=== PATIENT | male | born 1985 | race Caucasian/White ===

== ENCOUNTER 2021-06-14 12:32 | Inpatient (IN) ==
[2021-06-14 13:27] LABS: Appearance Urine Clear (Clear); Bacteria Urine Automated Negative (Negative); Bilirubin Urine Negative (Negative); Blood Urine Negative (Negative); Color Urine Dark Yellow; Glucose Urine UA Negative (Negative); Ketones Urine Trace (Negative); Leukocyte Esterase Urine Negative (Negative); Nitrite Urine Negative (Negative); Protein Urine Trace (Negative); RBC Urine Automated 0-4 /hpf (0-4); Specific Gravity Urine 1.034 (1.000-1.030); Urobilinogen Urine Negative (Negative)
[2021-06-14 13:36] LABS: Mean Corpuscular Hgb Conc 34.1 g/dL (32-36); Platelet Count 183 K/uL (130-400)
[2021-06-14 13:57] LABS: Albumin Level 3.6 gm/dl (3.4-5.0); BUN Creatinine Ratio 15.9 (10-20); Calcium 9.3 mg/dl (8.5-10.1); Creatinine Clr Calc Pharmacy 176.9 ml/min; Est GFR (African American) 139.5 ml/min; Est GFR (Non-African American) 120.3 ml/min; Potassium 3.5 mmol/L (3.5-5.1)
[2021-06-14 13:59] LABS: Albumin Globulin Ratio 0.8 (0.9-2); Bilirubin,Total 0.8 mg/dl (0.2-1); Globulin 4.5 gm/dl (2.5-4.0); Total Protein 8.1 gm/dl (6.4-8.2)
[2021-06-14 13:59] LABS: Mucus Urine Present (None Prsent)
--- NOTE | 2021-06-14 14:28 | Ultrasound Report ---
BILATERAL LOWER EXTREMITY VENOUS DOPPLER CLINICAL HISTORY: bilateral leg pain, swelling, redness COMPARISON STUDY: No previous studies for comparison. TECHNIQUE: Sonography of the deep venous system of the bilateral lower extremities was performed. Co mpression and augmentation were evaluated. FINDINGS: The bilateral common femoral, superficial femoral and popliteal veins were compressible. A ugmentation was normal. Flow was shown within the deep calf vessels. Note is made of prominent bilate ral inguinal lymph nodes. Each of these nodes contains a fatty hilum. These nodes are likely benign. Index left inguinal lymph node measures 3 x 1.4 x 1.4 cm. Index right inguinal lymph node measures 1. 8 x 1.7 x 1.2 cm. IMPRESSION: 1. No evidence of deep venous thrombus within the bilateral lower extremities. 2. Mildly enlarged bilateral inguinal lymph nodes. These nodes are probably benign and likely reactiv e. If progressive enlargement, repeat ultrasound is recommended. ACT 112: Negative or not required by law. Electronically signed by: Adonis Nuñez M.D. 06/14/2021 2:27 PM
[2021-06-14 14:33] LABS: Hematocrit (blood only) 36.9 % (42-52); Hemoglobin 12.6 g/dL (14.0-18.0); Mean Corpuscular Hemoglobin 27.3 pg (25-34); Mean Corpuscular Volume 79.9 fL (80-100); RDW Coefficient of Variation 13.7 % (11.5-14.5); RDW Standard Deviation 40.1 fL (36.4-46.3); Red Blood Count 4.62 M/uL (4.7-6.1); White Blood Count 15.62 K/uL (4.8-10.8)
[2021-06-14] MEDS ORDERED: VANCOMYCIN HCL 2,500 MG in SODIUM CHLORIDE 0.9% 500 ML IV ONE (14:33)
[2021-06-14] MEDS ORDERED: SODIUM CHLORIDE 0.9% 500 ML IV ONE (14:33)
[2021-06-14] MEDS ORDERED: VANCOMYCIN CONSULT ACTIVE PRN (14:33)
[2021-06-14] MEDS ORDERED: cefTRIAXone SODIUM 1,000 MG/50 ML BAG IV STA ×2 (14:33→16:00)
[2021-06-14 14:34] LABS: Basophils # (auto) 0.02 K/uL (0-0.2); Basophils % (auto) 0.1 %; Eosinophils # (auto) 0.01 K/uL (0-0.5); Eosinophils % (auto) 0.1 %; Immature Granulocytes # (auto) 0.05 K/uL (0.00-0.02); Immature Granulocytes % (auto) 0.3 %; Lymphocytes # (auto) 1.09 K/uL (1.2-3.4); Monocytes # (auto) 0.77 K/uL (0.11-0.59); Monocytes % (auto) 4.9 %; Neutrophils # (auto) 13.68 K/uL (1.4-6.5); Neutrophils % (auto) 87.6 %
--- NOTE | 2021-06-14 14:58 | Emergency Department Note ---
Impression & Plan Bilateral lower leg cellulitis, H/O intravenous drug use in remission, Leukocytosis ED Provider Note NAME: RODERICK PULIDO AGE: 35 SEX: M : 1985 ARRIVES VIA: Walk-In INFORMANT: Patient ED PROVIDER(S): Sam Shanks DO CHIEF COMPLAINT: Fever and bilateral leg pain HPI: Patient is a 35-year-old recovering IV drug user who presents the ER for bilateral leg pain. Pain is mainly in the right leg going up to the right groin. He admits to fevers as high as 103. He did vomit yesterday. He also has a little bit of a cough. He denies any belly pain nausea vomiting or diarrhea. No dysuria urgency or frequency. No other exacerbating or remitting factors. He notes that he has used his lower extremities to inject but has not used them anytime recently. ROS: See above HPI for pertinent positives & negatives. A total of 10 systems reviewed and were otherwise negative. PAST MEDICAL HISTORY:See Below PAST SURGICAL HISTORY:See Below FAMILY HISTORY:See Below SOCIAL HISTORY:See Below HOME MEDICATIONS:See Below ALLERGIES:See Below VITALS:See Below PHYSICAL EXAMINATION: GENERAL: Sitting up in bed, alert, well appearing, well nourished, no distress, non-toxic EYE EXAM: normal conjunctiva. OROPHARYNX: mucous membranes are moist NECK: supple, no nuchal rigidity, no adenopathy, non-tender LUNGS: Clear to auscultation. Normal chest wall mechanics HEART: no murmurs, S1 normal and S2 normal ABDOMEN: abdomen soft, non-tender, normo-active bowel sounds, no masses, no rebound or guarding. UPPER EXTREMITIES: upper extremities are grossly normal. LOWER EXTREMITIES: Pitting edema bilateral lower extremities with erythema circumferentially tracking up to just below the tibial plateaus. NEURO EXAM: Normal sensorium, cranial nerves II-XII grossly intact, normal speech, no gross weakness of arms, no gross weakness of legs. MEDICAL DECISION MAKING: Patient is a 35-year-old male who presents the ER for fevers leg pain. IV was established blood was obtained. Labs show leukocytosis of 15,000. Mild anemia 12.6. BMP along with LFTs bilirubin was unremarkable. Procalcitonin was normal. UA was clean. Tox was positive for marijuana. Covid was negative. Ultrasound was negative. He had bilateral cellulitis with leukocytosis. He was given IV antibiotics including vancomycin and Rocephin. He was updated bedside. Discussed with hospitalist for further evaluation and admission. Triage Nursing notes reviewed. Limited review of prior medical records performed Vital Signs: reviewed and remarkable for no significant abnormalities Differential diagnosis: Cellulitis, abscess, MRSA infection, DVT, necrotizing fasciitis, dermatitis, drug eruption, allergic reaction, as well as other pathologies. ER treatment provided: See below Diagnostics interpreted by me: ECG: none Cardiac Monitoring: An order was placed for continuous cardiac monitoring. The monitor shows a rate of 82 with sinus rhythm. Laboratory studies: As stated above and show below. 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 Tobacco use Surgical History H/O foot surgery Family History Other Diabetes Heart disease Social History (Updated 06/14/21 @ 16:12 by Julieth Carrera PA-C) Smoking Status: Current every day smoker Tobacco Type: Cigarettes packs per day: 0.5; Hx Alcohol Use: No Hx Substance Use: Yes Non-Prescribed Medications: IV Drugs Last Used Substance Other:: used to inject heroin and suboxone - states he last used over 1 year ago Feels Safe at Home: Yes Allergies Allergies Allergy/AdvReac Type Severity Reaction Status Date / Time amoxicillin Allergy Severe Anaphylaxis Verified 06/14/21 15:39 Penicillins Allergy Severe Anaphylaxis Verified 06/14/21 15:39 Home Meds Home Medications Medication Instructions Recorded Confirmed No Known Home Medications 06/14/21 06/14/21 Results & Data (ED) Vital Signs Vital Signs - 24 hr 06/14/21 12:46 Temperature 36.7 C Temperature Source Oral Pulse Rate 96 H Respiratory Rate 18 Blood Pressure 141/76 H Blood Pressure Mean 97 Pulse Oximetry 98 Sepsis Recent Fever Within 48 Hours No Sepsis New/Unexplained Change in Mental Status No Sepsis Action Taken by Nursing No Action Required Laboratory Data Result diagrams: 06/14/21 13:17 06/14/21 13:17 Lab Results 06/14/21 06/14/21 06/14/21 Range/Units 13:16 13:16 13:17 WBC 15.62 H (4.8-10.8) K/uL RBC 4.62 L (4.7-6.1) M/uL Hgb 12.6 L (14.0-18.0) g/dL Hct 36.9 L (42-52) % MCV 79.9 L (80-100) fL MCH 27.3 (25-34) pg MCHC 34.1 (32-36) g/dL RDW Std Deviation 40.1 (36.4-46.3) fL RDW Coeff of [place] 13.7 (11.5-14.5) % Plt Count 183 (130-400) K/uL MPV 10.0 (7.4-10.4) fL Immature Gran % (Auto) 0.3 % Neut % (Auto) 87.6 % Lymph % (Auto) 7.0 % [place] % (Auto) 4.9 % Eos % (Auto) 0.1 % Baso % (Auto) 0.1 % Neut # (Auto) 13.68 H (1.4-6.5) K/uL Lymph # (Auto) 1.09 L (1.2-3.4) K/uL [place] # (Auto) 0.77 H (0.11-0.59) K/uL Eos # (Auto) 0.01 (0-0.5) K/uL Baso # (Auto) 0.02 (0-0.2) K/uL Immature Gran # (Auto) 0.05 H (0.00-0.02) K/uL ESR (0-15) mm/hr Sodium (136-145) mmol/L Potassium (3.5-5.1) mmol/L Chloride (98-107) mmol/L Carbon Dioxide (21-32) mmol/L Anion Gap (3-11) BUN (7-18) mg/dl Creatinine (0.6-1.4) mg/dl Est Cr Clr Drug Dosing ml/min Est GFR ( Amer) ml/min Est GFR (Non-Af Amer) ml/min BUN/Creatinine Ratio (10-20) Glucose (70-99) mg/dl Calcium (8.5-10.1) mg/dl Total Bilirubin (0.2-1) mg/dl AST (15-37) U/L ALT (12-78) U/L Alkaline Phosphatase (45-117) U/L C-Reactive Protein (0-0.29) mg/dl Total Protein (6.4-8.2) gm/dl Albumin (3.4-5.0) gm/dl Globulin (2.5-4.0) gm/dl Albumin/Globulin Ratio (0.9-2) Procalcitonin (0-0.5) ng/ml Urine Color Dark Yellow Urine Appearance Clear (Clear) Urine pH 6.0 (4.5-7.5) Ur Specific [place] 1.034 H (1.000-1.030) Urine Protein Trace H (Negative) Urine Glucose (UA) Negative (Negative) Urine Ketones Trace H (Negative) Urine Blood Negative (Negative) Urine Nitrite Negative (Negative) Urine Bilirubin Negative (Negative) Urine Urobilinogen Negative (Negative) Ur Leukocyte Esterase Negative (Negative) Urine WBC (Auto) 5-10 H (0-5) /hpf Urine RBC (Auto) 0-4 (0-4) /hpf U Hyaline Cast (Auto) 1-5 (0-5) /lpf U Epithel Cells (Auto) 10-20 H (0-5) /lpf Urine Bacteria (Auto) Negative (Negative) Ur Renal Epithelial Cell Not Reportable Urine Mucus Present A (None Prsent) Urine Opiates Screen Neg (Neg) Ur Methadone, Qual Neg (Neg) Urine Barbiturates Neg (Neg) Ur Phencyclidine (PCP) Neg (Neg) U Amphetamin/Meth Scrn Neg (Neg) MDMA (Ecstasy) Screen Neg (Neg) U Benzodiazepines Scrn Neg (Neg) Ur Cocaine Metabolite Neg (Neg) U Marijuana (THC) Screen Pos H (Neg) 06/14/21 06/14/21 06/14/21 Range/Units 13:17 13:17 13:23 WBC (4.8-10.8) K/uL RBC (4.7-6.1) M/uL Hgb (14.0-18.0) g/dL Hct (42-52) % MCV (80-100) fL MCH (25-34) pg MCHC (32-36) g/dL RDW Std Deviation (36.4-46.3) fL RDW Coeff of [place] (11.5-14.5) % Plt Count (130-400) K/uL MPV (7.4-10.4) fL Immature Gran % (Auto) % Neut % (Auto) % Lymph % (Auto) % [place] % (Auto) % Eos % (Auto) % Baso % (Auto) % Neut # (Auto) (1.4-6.5) K/uL Lymph # (Auto) (1.2-3.4) K/uL [place] # (Auto) (0.11-0.59) K/uL Eos # (Auto) (0-0.5) K/uL Baso # (Auto) (0-0.2) K/uL Immature Gran # (Auto) (0.00-0.02) K/uL ESR 36 H (0-15) mm/hr Sodium 135 L (136-145) mmol/L Potassium 3.5 (3.5-5.1) mmol/L Chloride 104 (98-107) mmol/L Carbon Dioxide 24 (21-32) mmol/L Anion Gap 7.0 (3-11) BUN 12 (7-18) mg/dl Creatinine 0.74 (0.6-1.4) mg/dl Est Cr Clr Drug Dosing 176.9 ml/min Est GFR ( Amer) 139.5 ml/min Est GFR (Non-Af Amer) 120.3 ml/min BUN/Creatinine Ratio 15.9 (10-20) Glucose 121 H (70-99) mg/dl Calcium 9.3 (8.5-10.1) mg/dl Total Bilirubin 0.8 (0.2-1) mg/dl AST 14 L (15-37) U/L ALT 26 (12-78) U/L Alkaline Phosphatase 82 (45-117) U/L C-Reactive Protein 16.00 H (0-0.29) mg/dl Total Protein 8.1 (6.4-8.2) gm/dl Albumin 3.6 (3.4-5.0) gm/dl Globulin 4.5 H (2.5-4.0) gm/dl Albumin/Globulin Ratio 0.8 L (0.9-2) Procalcitonin 0.50 (0-0.5) ng/ml Urine Color Urine Appearance (Clear) Urine pH (4.5-7.5) Ur Specific [place] (1.000-1.030) Urine Protein (Negative) Urine Glucose (UA) (Negative) Urine Ketones (Negative) Urine Blood (Negative) Urine Nitrite (Negative) Urine Bilirubin (Negative) Urine Urobilinogen (Negative) Ur Leukocyte Esterase (Negative) Urine WBC (Auto) (0-5) /hpf Urine RBC (Auto) (0-4) /hpf U Hyaline Cast (Auto) (0-5) /lpf U Epithel Cells (Auto) (0-5) /lpf Urine Bacteria (Auto) (Negative) Ur Renal Epithelial Cell Urine Mucus (None Prsent) Urine Opiates Screen (Neg) Ur Methadone, Qual (Neg) Urine Barbiturates (Neg) Ur Phencyclidine (PCP) (Neg) U Amphetamin/Meth Scrn (Neg) MDMA (Ecstasy) Screen (Neg) U Benzodiazepines Scrn (Neg) Ur Cocaine Metabolite (Neg) U Marijuana (THC) Screen (Neg) Administered Medications Acetaminophen (Acetaminophen 325 Mg Tab) 650 mg PO Q4H PRN PRN Reason: pain/fever Stop: 07/14/21 19:59 Last Admin: 06/14/21 20:15 Dose: 650 mg Documented by: [id number] Enoxaparin Sodium (Enoxaparin Inj 40 Mg/0.4 Ml Syr) 40 mg SQ Q24H ALAN Stop: 07/14/21 19:59 Last Admin: 06/14/21 20:16 Dose: 40 mg Documented by: [id number] Sodium Chloride (Nss 1000ml) 1,000 mls @ 100 mls/hr IV .Q10H ALAN Stop: 06/15/21 05:59 Last Admin: 06/14/21 20:15 Dose: 100 mls/hr Documented by: [id number] Discontinued Medications Vancomycin HCl 2,500 mg/ (Sodium Chloride) 550 mls @ 200 mls/hr IV NOW ONE Stop: 06/14/21 17:17 Last Infusion: 06/14/21 19:44 Dose: 0 mls/hr Documented by: [id number] Admin: 06/14/21 16:59 Dose: 200 mls/hr Documented by: [id number] Ceftriaxone Sodium (Rocephin) 1,000 mg in 50 mls @ 100 mls/hr IV NOW STA Stop: 06/14/21 15:02 Last Infusion: 06/14/21 16:35 Dose: 0 mls/hr Documented by: [id number] Admin: 06/14/21 16:05 Dose: 100 mls/hr Documented by: [id number] Sodium Chloride (Nss) 500 mls @ 999 mls/hr IV .Q31M ONE Stop: 06/14/21 15:03 Last Infusion: 06/14/21 16:38 Dose: 0 mls/hr Documented by: [id number] Admin: 06/14/21 16:07 Dose: 999 mls/hr Documented by: [id number] Ceftriaxone Sodium (Rocephin) 1,000 mg in 50 mls @ 100 mls/hr IV NOW STA Stop: 06/14/21 16:29 Last Admin: 06/14/21 16:46 Dose: Not Given Documented by: [id number] Potassium Chloride (Potassium Chloride Crtab 20 Meq Tabcr) 40 meq PO NOW STA Stop: 06/14/21 15:53 Last Admin: 06/14/21 16:59 Dose: 40 meq Documented by: [id number] Imaging Data Radiologist's Impression: Venous Doppler Study 06/14/21 13:03 BILATERAL LOWER EXTREMITY VENOUS DOPPLER CLINICAL HISTORY: bilateral leg pain, swelling, redness COMPARISON STUDY: No previous studies for comparison. TECHNIQUE: Sonography of the deep venous system of the bilateral lower extremities was performed. Compression and augmentation were evaluated. FINDINGS: The bilateral common femoral, superficial femoral and popliteal veins were compressible. Augmentation was normal. Flow was shown within the deep calf vessels. Note is made of prominent bilateral inguinal lymph nodes. Each of these nodes contains a fatty hilum. These nodes are likely benign. Index left inguinal lymph node measures 3 x 1.4 x 1.4 cm. Index right inguinal lymph node measures 1.8 x 1.7 x 1.2 cm. IMPRESSION: 1. No evidence of deep venous thrombus within the bilateral lower extremities. 2. Mildly enlarged bilateral inguinal lymph nodes. These nodes are probably benign and likely reactive. If progressive enlargement, repeat ultrasound is recommended. ACT 112: Negative or not required by law. Electronically signed by: Adonis Nuñez M.D. 06/14/2021 2:27 PM Discharge Plan Visit Data Chief Complaint: Leg Injury/Pain Stated Complaint: RT LEG PAIN AND SWELLING,LT LEG RED,FEVER ED Provider: Sam Shanks Discharge Problem: Bilateral lower leg cellulitis, H/O intravenous drug use in remission, Leukocytosis Patient Disposition: Admitted As Inpatient Discharge Instructions Interventions: ED Discharge Assessment Last Done: 06/14/21 19:31
--- NOTE | 2021-06-14 15:36 | History & Physical Report ---
Date of Service June 14, 2021 Assessment & Plan (1) Bilateral lower leg cellulitis: Plan: This is a 35yo M with a PMH of IV drug use presenting with redness and swelling of lower extremities. BLE cellulitis with possible sepsis - awaiting labs. Non-toxic appearance Developed fever yesterday (tmax of 103) with associated frontal headache and leg pain Afebrile today - ESR, CRP, lactate, procal and blood cultures pending BLE venous doppler without evidence of DVT but presence of mildly enlarged bilat. inguinal lymph nodes, likely benign and reactive Started on Rocephin and vanco in ED - plan to continue Follow blood cultures IV fluids (2) Close exposure to COVID-19 virus: Plan: Daughter tested positive today for covid 19. Patient is unvaccinated. Covid PCR is pending Keep on airborne precautions either way. If negative test today, plan to retest in a few days (3) H/O intravenous drug use in remission: Plan: H/o injecting heroin and Suboxone use, denies use in over 1 year UDS pending (4) Tobacco use: Plan: Cessation recommended. Offered nicotine patch but declined DVT Ppx: SQ lovenox Code status: FULL PCP: Rosemary Dispo: Observation med/surg Patient seen in collaboration with Dr. Richardson. Please see addendum. History of Present Illness Chief Complaint: bilateral leg pain Primary Care Provider: POLINA PCP This is a 35yo M with a PMH of IV drug use presenting with redness and swelling of lower extremities. Started to feel poorly at work yesterday and returned home early. Had a fever with tmax of 103 with associated frontal headache. No neck pain or visual changes. Had nausea with one episode of vomiting. Took Tylenol and Advil overnight. Noticed redness of lower legs this morning. Endorses swelling as well as some pain. Denies any IV drug use in 1 year. 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 Daughter tested positive for covid earlier today. Patient is not vaccinated. Smoking 1/2 ppd. Also endorses some lower back pain and dysuria last evening that has since resolved. 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 Physical Exam Physical Exam: Please see Dr. Richardson's addendum for physical exam. Results & Data Results & Data ([facility]) Vital Signs (Past 12 Hours) Vital Signs Temp Pulse Resp BP Pulse Ox 06/14/21 12:46 36.7 C 96 H 18 141/76 H 98 Laboratory Results Short CBC 06/14/21 Range/Units 13:17 WBC 15.62 H (4.8-10.8) K/uL Hgb 12.6 L (14.0-18.0) g/dL Hct 36.9 L (42-52) % Plt Count 183 (130-400) K/uL BMP 06/14/21 13:17 Sodium 135 L Potassium 3.5 Chloride 104 Carbon Dioxide 24 BUN 12 Creatinine 0.74 Glucose 121 H Calcium 9.3 Liver Function 06/14/21 Range/Units 13:17 Total Bilirubin 0.8 (0.2-1) mg/dl AST 14 L (15-37) U/L ALT 26 (12-78) U/L Alkaline Phosphatase 82 (45-117) U/L Albumin 3.6 (3.4-5.0) gm/dl Urine 06/14/21 Range/Units 13:16 Urine Color Dark Yellow Urine Appearance Clear (Clear) Urine pH 6.0 (4.5-7.5) Ur Specific [place] 1.034 H (1.000-1.030) Urine Protein Trace H (Negative) Urine Glucose (UA) Negative (Negative) Diagnostic Findings Venous Doppler Study 06/14/21 13:03 BILATERAL LOWER EXTREMITY VENOUS DOPPLER CLINICAL HISTORY: bilateral leg pain, swelling, redness COMPARISON STUDY: No previous studies for comparison. TECHNIQUE: Sonography of the deep venous system of the bilateral lower extremities was performed. Compression and augmentation were evaluated. FINDINGS: The bilateral common femoral, superficial femoral and popliteal veins were compressible. Augmentation was normal. Flow was shown within the deep calf vessels. Note is made of prominent bilateral inguinal lymph nodes. Each of these nodes contains a fatty hilum. These nodes are likely benign. Index left inguinal lymph node measures 3 x 1.4 x 1.4 cm. Index right inguinal lymph node measures 1.8 x 1.7 x 1.2 cm. IMPRESSION: 1. No evidence of deep venous thrombus within the bilateral lower extremities. 2. Mildly enlarged bilateral inguinal lymph nodes. These nodes are probably benign and likely reactive. If progressive enlargement, repeat ultrasound is recommended. ACT 112: Negative or not required by law. Electronically signed by: Adonis Nuñez M.D. 06/14/2021 2:27 PM Supervising Physician Co-Signing Physician Notes Patient is a 35-year-old male with history of Prior IV drug use and no other significant past medical history presents with history of bilateral lower extremity swelling, erythema associated with fever and headache. He denies any recent trauma but admits doing matt work by occupation and could have sustained an injury which he is unaware of. He also states that his daughter was tested positive for Covid today. He reports having right groin tenderness which started today. Denies any cough, chest pain, shortness of breath, dizziness. Physical Exam: Vitals signs as noted above General Appearance:Morbidly obese, no apparent distress Head: normocephalic, Atraumatic Eyes: normal inspection, EOMI Neck: supple, Trachea midline Respiratory/Chest: Normal breath sounds, CTA, No accessory muscle use Cardiovascular: S1, S2, No murmur Abdomen/GI:Soft, Non tender, Bowel sounds present, Mild Right groin tender Extremities/Musculoskeletal:normal inspection, B/L LE edema, +Erythema, mild tender Neurologic/Psych:AAOX3, grossly no focal neurological deficits Skin: normal color, warm Bilateral lower extremity cellulitis Lymphadenopathy on Doppler study likely secondary to above Venous Dopplers showed no acute DVT. Agree with vancomycin, Rocephin, IV fluids Blood cultures obtained. Patient currently denies any IV drug use. Last use 1 year ago as per patient. Toxicology screen pending. COVID-19 exposure Patient is unvaccinated currently. Isolation precautions Covid screen pending. I personally reviewed the record. Patient is interviewed and examined at bedside. Patient's care is coordinated with Julieth Carrera PA-C. Please refer to the documentation above for details of patient's presentation and for discussion of other issues.
[2021-06-14] MEDS ORDERED: POTASSIUM CHLORIDE CRTAB 20 MEQ TABCR PO STA (15:52)
[2021-06-14 17:54] LABS: Amphetamines+Metham, Urine Neg (Neg); Barbiturates, Urine Neg (Neg); Benzodiazepine, Urine Neg (Neg); Cocaine, Urine Neg (Neg); MDMA (Ecstacy), Urine Neg (Neg); Methadone, Urine Neg (Neg); Opiate, Urine Neg (Neg); Phencyclidine, Urine Neg (Neg)
[2021-06-14] MEDS ORDERED: SODIUM CHLORIDE 0.9% 1000ML 1,000 ML IV SCH (20:00)
[2021-06-14] MEDS ORDERED: POLYETHYLENE (MIRALAX) 17 GM PACK PO PRN (20:00)
[2021-06-14] MEDS ORDERED: ONDANSETRON INJ 2 MG/ML 2 ML VIAL IV PRN (20:00)
[2021-06-14] MEDS: ACETAMINOPHEN 325 MG TAB PO PRN (20:15)
[2021-06-14] MEDS: ENOXAPARIN INJ 40 MG/0.4 ML SYR SQ SCH (20:16)
--- NOTE | 2021-06-14 20:58 | Pharmacy Report ---
Pharmacy Abx Dose Short Note - Date of Service June 14, 2021 - Assessment & Plan Assessment 35 year old M receiving vancomycin for treatment of cellulitis Day # 1 of antimicrobial therapy. Plan Vancomycin * vancomycin 2500 mg (21 mg/kg) IV x 1 * vancomycin 1750 mg IV q8 hours (population pharmacokinetics suggest Ke of 0.09 with half life of 7 hours) expect accumulation due to body habitus * vancomycin trough goal of 15 for cellulitis * trough prior to 1000 dose on 06/16/21 Pharmacy will continue to follow and will adjust dose/frequency as necessary. Thank you.
[2021-06-14] MEDS ORDERED: cefTRIAXone SODIUM 1,000 MG/50 ML BAG IV ONE (21:00)
[2021-06-15] MEDS: VANCOMYCIN HCL 1,750 MG in SODIUM CHLORIDE 0.9% 500 ML IV SCH ×3 (01:19→17:30)
[2021-06-15] MEDS: ACETAMINOPHEN 325 MG TAB PO PRN ×3 (01:20→17:55)
[2021-06-15] MEDS: cefTRIAXone SODIUM 2,000 MG in DEXTROSE 5% 50 ML IV SCH (08:47)
[2021-06-15 09:22] LABS: Hematocrit (blood only) 35.2 % (42-52); Hemoglobin 11.9 g/dL (14.0-18.0); Mean Corpuscular Hemoglobin 27.4 pg (25-34); Mean Corpuscular Hgb Conc 33.8 g/dL (32-36); Mean Corpuscular Volume 80.9 fL (80-100); Platelet Count 145 K/uL (130-400); RDW Coefficient of Variation 13.9 % (11.5-14.5); RDW Standard Deviation 41.6 fL (36.4-46.3); Red Blood Count 4.35 M/uL (4.7-6.1); White Blood Count 9.06 K/uL (4.8-10.8)
[2021-06-15 10:17] LABS: BUN Creatinine Ratio 9.7 (10-20); Calcium 8.6 mg/dl (8.5-10.1); Creatinine Clr Calc Pharmacy 181.9 ml/min; Est GFR (African American) 141.1 ml/min; Est GFR (Non-African American) 121.7 ml/min; Potassium 3.6 mmol/L (3.5-5.1)
--- NOTE | 2021-06-15 16:05 | Hospitalist Progress Note ---
Date of Service June 15, 2021 Assessment & Plan (1) Bilateral lower leg cellulitis: Plan: Patient is a 35 yr male with PMH of IV drug use presenting with redness and swelling of lower extremities. Bilateral lower extremity cellulitis Lymphadenopathy on Doppler study likely secondary to above Blood cultures: pending Venous Dopplers showed no acute DVT. Continue vancomycin, Rocephin Day #2 Received IV fluids (2) Close exposure to COVID-19 virus: Plan: Daughter tested positive for covid 19 on 04/14/21 Patient is unvaccinated Covid PCR is Negative Airborne precautions for now Saturating well on Room Air Will repeat COVID screen tomorrow (3) H/O intravenous drug use in remission: Plan: H/o injecting heroin and Suboxone use, denies use in over 1 year Toxicology screen positive for Marijuana (4) Tobacco use: Plan: Cessation recommended. Refused nicotine patch DVT Px: SQ Lovenox Code status: FULL CODE Admission and Anticipated Discharge Date Admission Date: June 15, 2021 Subjective Patient is seen and examined at bedside Left leg erythema improving Persistent right lower extremity erythema Minimal leg discomfort No new complaints Denies chest pain, shortness of breath, dizziness, nausea, abdominal pain Review of Systems Review of Systems: All systems reviewed & are unremarkable except as noted in Subjective Physical Exam Physical Exam: Physical Exam: Vitals signs as noted above General Appearance:Morbidly obese, no apparent distress Head: normocephalic, Atraumatic Eyes: normal inspection, EOMI Neck: supple, Trachea midline Respiratory/Chest: Normal breath sounds, CTA Cardiovascular: S1, S2, No murmur Abdomen/GI:Soft, Non tender, Bowel sounds present, Mild Right groin tender Extremities/Musculoskeletal:normal inspection, B/L LE edema, mild tender, LLE erythema improving Neurologic/Psych:AAOX3, grossly no focal neurological deficits Skin: normal color, warm Results & Data Results & Data ([facility]) Vital Signs (Past 12 Hours) Vital Signs Temp Pulse Resp BP Pulse Ox 06/15/21 14:27 37 C 78 18 133/81 98 06/15/21 08:11 37.2 C 74 18 138/73 95 Laboratory Results Short CBC 06/15/21 Range/Units 09:03 WBC 9.06 (4.8-10.8) K/uL Hgb 11.9 L (14.0-18.0) g/dL Hct 35.2 L (42-52) % Plt Count 145 (130-400) K/uL BMP 06/15/21 09:03 Sodium 135 L Potassium 3.6 Chloride 105 Carbon Dioxide 27 BUN 7 D Creatinine 0.72 Glucose 173 H Calcium 8.6
[2021-06-15] MEDS: ENOXAPARIN INJ 40 MG/0.4 ML SYR SQ SCH (19:54)
[2021-06-16] MEDS: VANCOMYCIN HCL 1,750 MG in SODIUM CHLORIDE 0.9% 500 ML IV SCH ×2 (01:28→10:59)
[2021-06-16] MEDS: cefTRIAXone SODIUM 2,000 MG in DEXTROSE 5% 50 ML IV SCH (08:47)
[2021-06-16] MEDS ORDERED: VANCOMYCIN TROUGH ONE (09:30)
[2021-06-16 10:43] LABS: BUN Creatinine Ratio 12.1 (10-20); Calcium 9.1 mg/dl (8.5-10.1); Creatinine Clr Calc Pharmacy 192.6 ml/min; Est GFR (African American) 144.4 ml/min; Est GFR (Non-African American) 124.6 ml/min; Potassium 4.3 mmol/L (3.5-5.1)
[2021-06-16 14:11] LABS: Hemoglobin 12.1 g/dL (14.0-18.0); Mean Corpuscular Hgb Conc 33.6 g/dL (32-36); Mean Corpuscular Volume 80.4 fL (80-100); Mean Platelet Volume 9.8 fL (7.4-10.4); Platelet Count 253 K/uL (130-400); RDW Coefficient of Variation 13.8 % (11.5-14.5); RDW Standard Deviation 40.6 fL (36.4-46.3); Red Blood Count 4.48 M/uL (4.7-6.1); White Blood Count 7.19 K/uL (4.8-10.8)
--- NOTE | 2021-06-16 15:10 | Pharmacy Report ---
Pharmacy Abx Dose Short Note - Date of Service June 16, 2021 - Assessment & Plan Assessment 35 year old M WAS receiving Vancomycin 1750 mg IV q8h for treatment of bilateral leg cellulitis. Day #3 of antimicrobial therapy. Trough Vanco level obtained today AM before 10:00 dose was 7.9 mcg/ml after four maintenance doses were given. AUC for this dosing and trough was 561. Goal AUC 400-600 up to max of 650. Increasing the Vancomycin dose was warranted in this patient with a history if IV drug use. However, the Vanco dose was already high and dosed at q8h interval in this patient with high BMI (40.2) and increasing Vanco dose further could potentially result in drug accumulation in few days. Plan Vancomycin * Trough level of 7.9 mcg/mL is subtherapeutic. * Spoke to Dr. Richardson, explained above assessment and recommended change to Daptomycin. * Dr. Richardson approved change to Daptomycin. Pharmacy will continue to follow and will adjust dose/frequency as necessary. Thank you.
[2021-06-16] MEDS: DAPTOmycin 350 MG in SYRINGE 0 ML IV SCH (17:10)
[2021-06-16] MEDS: ENOXAPARIN INJ 40 MG/0.4 ML SYR SQ SCH (20:40)
--- NOTE | 2021-06-16 21:00 | Hospitalist Progress Note ---
Date of Service June 16, 2021 Assessment & Plan (1) Bilateral lower leg cellulitis: Plan: Patient is a 35 yr male with PMH of IV drug use presenting with redness and swelling of lower extremities. Bilateral lower extremity cellulitis Lymphadenopathy on Doppler study likely secondary to above MRSA screen Negative Blood cultures: No growth to date Venous Dopplers showed no acute DVT. Continue vancomycin, Rocephin Day #2>> transition to daptomycin, Rocephin Received IV fluids Plan to transition to p.o. antibiotics as able (2) Close exposure to COVID-19 virus: Plan: Daughter tested positive for covid 19 on 04/14/21 Patient is unvaccinated Covid PCR is Negative Airborne precautions for now Saturating well on Room Air Will repeat COVID screen tomorrow (3) H/O intravenous drug use in remission: Plan: H/o injecting heroin and Suboxone use, denies use in over 1 year Toxicology screen positive for Marijuana (4) Tobacco use: Plan: Cessation recommended. Refused nicotine patch DVT Px: SQ Lovenox Code status: FULL CODE Admission and Anticipated Discharge Date Admission Date: June 15, 2021 Subjective Patient is seen and examined at bedside Bilateral leg erythema continues to improve Denies any pain No new complaints Also denies cough, chest pain, shortness of breath, dizziness, nausea, abdominal pain Review of Systems Review of Systems: All systems reviewed & are unremarkable except as noted in Subjective Physical Exam Physical Exam: Physical Exam: Vitals signs as noted above General Appearance:Morbidly obese, no apparent distress Head: normocephalic, Atraumatic Eyes: normal inspection, EOMI Neck: supple, Trachea midline Respiratory/Chest: Normal breath sounds, CTA Cardiovascular: S1, S2, No murmur Abdomen/GI:Soft, Non tender, Bowel sounds present, Mild Right groin tender Extremities/Musculoskeletal:normal inspection, B/L LE edema, mild tender, LLE erythema improving Neurologic/Psych:AAOX3, grossly no focal neurological deficits Skin: normal color, warm Results & Data Results & Data ([facility]) Vital Signs (Past 12 Hours) Vital Signs Temp Pulse Resp BP Pulse Ox 06/16/21 17:30 36.8 C 66 18 151/82 H 98 Laboratory Results Short CBC 06/16/21 06/16/21 06/16/21 Range/Units 10:06 10:19 14:01 WBC Cancelled Cancelled 7.19 Hgb Cancelled Cancelled 12.1 L Hct Cancelled Cancelled 36.0 L Plt Count Cancelled Cancelled 253 D BMP 06/16/21 10:06 Sodium 141 Potassium 4.3 D Chloride 111 H Carbon Dioxide 27 BUN 8 Creatinine 0.68 Glucose 124 H Calcium 9.1
--- NOTE | 2021-06-17 08:29 | Hospitalist Progress Note ---
Date of Service June 17, 2021 Assessment & Plan (1) Bilateral lower leg cellulitis: Plan: Patient is a 35 yr male with PMH of IV drug use presenting with redness and swelling of lower extremities. Bilateral lower extremity cellulitis Lymphadenopathy on Doppler study likely secondary to above MRSA screen Negative Blood cultures: No growth to date Venous Dopplers showed no acute DVT. Continue vancomycin, Rocephin Day #2>> transition to daptomycin, Rocephin Day #2 Received IV fluids Clinically Improved Plan to discharge home on oral antibiotics (2) Close exposure to COVID-19 virus: Plan: Daughter tested positive for covid 19 on 04/14/21 Patient is unvaccinated Covid PCR is Negative Airborne precautions for now Saturating well on Room Air Repeat COVID screen Negative (3) H/O intravenous drug use in remission: Plan: H/o injecting heroin and Suboxone use, denies use in over 1 year Toxicology screen positive for Marijuana (4) Tobacco use: Plan: Cessation recommended. Refused nicotine patch DVT Px: SQ Lovenox Code status: FULL CODE Admission and Anticipated Discharge Date Admission Date: June 15, 2021 Subjective Patient is seen and examined at bedside Doing well today No new complaints Bilateral leg erythema almost resolved Also denies cough, chest pain, shortness of breath, dizziness, nausea, abdominal pain Review of Systems Review of Systems: All systems reviewed & are unremarkable except as noted in Subjective Physical Exam Physical Exam: Physical Exam: Vitals signs as noted above General Appearance:Morbidly obese, no apparent distress Head: normocephalic, Atraumatic Eyes: normal inspection, EOMI Neck: supple, Trachea midline Respiratory/Chest: Normal breath sounds, CTA Cardiovascular: S1, S2, No murmur Abdomen/GI:Soft, Non tender, Bowel sounds present, Mild Right groin tender Extremities/Musculoskeletal:normal inspection, B/L LE edema, mild tender, LLE erythema improved Neurologic/Psych:AAOX3, grossly no focal neurological deficits Skin: normal color, warm Results & Data Results & Data ([facility]) Vital Signs (Past 12 Hours) Vital Signs Temp Pulse Resp BP Pulse Ox 06/17/21 08:18 37.3 C 75 18 150/84 H 98 06/16/21 23:30 36.6 C 63 18 112/65 98 Laboratory Results [facility] 06/17/21 07:33 Sodium 137 Potassium 4.0 Chloride 108 H Carbon Dioxide 22 BUN 9 Creatinine 0.71 Glucose 113 H Calcium 9.0
[2021-06-17 08:32] LABS: BUN Creatinine Ratio 12.7 (10-20); Creatinine Clr Calc Pharmacy 184.5 ml/min; Est GFR (African American) 141.9 ml/min; Est GFR (Non-African American) 122.4 ml/min
[2021-06-17] MEDS: cefTRIAXone SODIUM 2,000 MG in DEXTROSE 5% 50 ML IV SCH (09:01)
[2021-06-17 09:56] LABS: Marijuana Quant, GCMS Urine 734 ng/mL (<5)
--- NOTE | 2021-06-17 15:04 | Discharge Summary ---
Date of Service June 17, 2021 Admission HPI Per Admitting Provider This is a 35yo M with a PMH of IV drug use presenting with redness and swelling of lower extremities. Started to feel poorly at work yesterday and returned home early. Had a fever with tmax of 103 with associated frontal headache. No neck pain or visual changes. Had nausea with one episode of vomiting. Took Tylenol and Advil overnight. Noticed redness of lower legs this morning. Endorses swelling as well as some pain. Denies any IV drug use in 1 year. 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 Daughter tested positive for covid earlier today. Patient is not vaccinated. Smoking 1/2 ppd. Also endorses some lower back pain and dysuria last evening that has since resolved. Admission Exam Per Admitting Provider Physical Exam: Vitals signs as noted above General Appearance:Morbidly obese, no apparent distress Head: normocephalic, Atraumatic Eyes: normal inspection, EOMI Neck: supple, Trachea midline Respiratory/Chest: Normal breath sounds, CTA, No accessory muscle use Cardiovascular: S1, S2, No murmur Abdomen/GI:Soft, Non tender, Bowel sounds present, Mild Right groin tender Extremities/Musculoskeletal:normal inspection, B/L LE edema, +Erythema, mild tender Neurologic/Psych:AAOX3, grossly no focal neurological deficits Skin: normal color, warm Principal Diagnosis Bilateral lower extremity cellulitis Discharge Data Allergies Allergy/AdvReac Type Severity Reaction Status Date / Time amoxicillin Allergy Severe Anaphylaxis Verified 06/14/21 15:39 Penicillins Allergy Severe Anaphylaxis Verified 06/14/21 15:39 Consultations 06/14/21 15:08 ED Decision to Admit Stat Ordered Studies 06/14/21 13:03 US leg [US venous doppler LE BI] Stat Hospital Course (1) Bilateral lower leg cellulitis: Patient is a 35 yr male with PMH of IV drug use presenting with redness and swelling of lower extremities. Bilateral lower extremity cellulitis Lymphadenopathy on Doppler study likely secondary to above MRSA screen Negative Blood cultures: No growth to date Venous Dopplers showed no acute DVT. Continue vancomycin, Rocephin Day #2>> transition to daptomycin, Rocephin Day #2 Received IV fluids Clinically Improved Plan to discharge home on oral antibiotics (2) Close exposure to COVID-19 virus: Daughter tested positive for covid 19 on 04/14/21 Patient is unvaccinated Covid PCR is Negative Airborne precautions for now Saturating well on Room Air Repeat COVID screen Negative (3) H/O intravenous drug use in remission: H/o injecting heroin and Suboxone use, denies use in over 1 year Toxicology screen positive for Marijuana (4) Tobacco use: Cessation recommended. Refused nicotine patch DVT Px: SQ Lovenox Code status: FULL CODE Total Time Total Time Spent Total Time Spent (In Minutes): 40 minutes Discharge Plan Discharge Items Patient Disposition: Home - Self-Care Reason For Visit: RT LEG PAIN AND SWELLING,LT LEG RED,FEVER Discharge Diagnosis: Bilateral lower extremity cellulitis Activity: Per Instructions section Exercise/Sports: Wait until after follow-up appointment Non-emergency contact: Primary Care Provider Call non-emergency contact if: you have any medication questions, your symptoms worsen, your pain is concerning for you and you have a fever Follow-up/Referrals: PCP,NO [Primary Care Provider] - Diet: Heart Healthy Addtl Attending Provider Instructions: Follow-up with your primary care physician in 1 week Complete the antibiotic course as prescribed. (Start taking from 06/18/21) Your final blood cultures are pending at the time of discharge. Follow-up with your physician for results. Seek immediate medical attention if your symptoms reoccur or worsen Please take all medications as instructed on discharge list below. Please call if you have any questions or problems. You can reach a [facility] hospitalist on duty at [facility] 24 hours a day by calling [phone] Pending Studies at Discharge: Yes Studies:: Blood Cultures Stand-Alone Forms: My [facility], Smoking Cessation Medications and DC Order Prescriptions: New doxycycline monohydrate 100 mg capsule 100 mg PO BID 7 Days Qty: 14 RF: 0 cefuroxime axetil 500 mg tablet 500 mg PO BID 7 Days Qty: 14 RF: 0 Discharge Orders: Discharge Order (Routine); Ordered 06/17/21 Ordered By: Cooper Richardson Admission Data Admit Date/Time: 06/15/21 07:51 Attending Provider: Cooper Richardson Admit Provider: Cooper Richardson Primary Care Provider: PCP,NO Other Providers: Cooper Richardson
[2021-06-17] MEDS: DAPTOmycin 350 MG in SYRINGE 0 ML IV SCH (15:54)
== END 2021-06-17 16:33 | disposition home or self-care (01) | DRG 603 ==
LOC: ED 12:32 → 2N 12:32
DX: D64.9 Anemia, unspecified; Z88.0 Allergy status to penicillin; L03.116 Cellulitis of left lower limb; Z20.822 Contact with and (suspected) exposure to COVID-19; F17.210 Nicotine dependence, cigarettes, uncomplicated; F11.11 Opioid abuse, in remission; L03.115 Cellulitis of right lower limb

== ENCOUNTER 2024-05-06 15:57 | Inpatient (IN) ==
[2024-05-06 16:40] LABS: Basophils # (auto) 0.04 K/uL (0.00-0.20); Basophils % (auto) 0.6 %; Eosinophils # (auto) 0.14 K/uL (0.00-0.50); Eosinophils % (auto) 1.9 %; Hematocrit (blood only) 37.9 % (42.0-52.0); Hemoglobin 12.5 g/dl (14.0-18.0); Immature Granulocytes # (auto) 0.04 K/uL (0.01-0.20); Immature Granulocytes % (auto) 0.6 %; Lymphocytes # (auto) 1.31 K/uL (1.20-3.40); Lymphocytes % (auto) 18.2 %; Mean Corpuscular Hemoglobin 26.8 pg (25.0-34.0); Mean Corpuscular Volume 81.3 fL (80.0-100.0); Mean Platelet Volume 9.3 fL (9.4-12.4); Monocytes # (auto) 0.92 K/uL (0.11-0.59); Monocytes % (auto) 12.8 %; Neutrophils # (auto) 4.75 K/uL (1.40-6.50); Neutrophils % (auto) 65.9 %; Platelet Count 283 K/uL (130-400); RDW Coefficient of Variation 13.3 % (11.5-14.5); RDW Standard Deviation 39.3 fL (36.4-46.3); Red Blood Count 4.66 M/uL (4.70-6.10)
[2024-05-06 16:59] LABS: Albumin Globulin Ratio 1.4 (0.9-2); Albumin Level 4.5 gm/dl (3.4-5.0); BUN Creatinine Ratio 19.8 (10-20); Bilirubin,Total 0.4 mg/dl (0.2-1.0); Calcium 8.9 mg/dl (8.6-10.3); Est GFR (African American) 128.4 ml/min; Est GFR (Non-African American) 110.8 ml/min; Globulin 3.3 gm/dl (2.5-4.0); Total Protein 7.8 gm/dl (6.0-8.3)
--- NOTE | 2024-05-06 19:12 | Emergency Department Note ---
Impression & Plan Cellulitis, Failure of outpatient treatment, Anemia ED Provider Note NAME: RODERICK PULIDO AGE: 38 SEX: M : 1985 ARRIVES VIA: Walk-In INFORMANT: [Patient] ED PROVIDER(S): [Dontae Carr MD] CHIEF COMPLAINT: Hand pain HISTORY OF PRESENT ILLNESS: The patient is a 38-year-old male who states that about a week ago, he began noticing some swelling and redness to his right hand. 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 He has a history of a crush injury and dog bite to this hand and always has some swelling at baseline. The patient went to acute care 3 days ago and was placed on clindamycin. He states that this has not made any difference. He has noticed some areas of swelling to the third finger and this finger seems to hurt with movement. He has not had fever. He has not really noticed any drainage but there is an abrasion to the ulnar aspect of the dorsum of the right hand. He thinks he injured this area when doing construction. No cough or congestion, no respiratory complaints. PMHx/PSHx/Social Hx: See Below PHYSICAL EXAM: GENERAL: Patient is in no acute distress. HEENT: No acute trauma, normocephalic atraumatic, mucous membranes moist, no nasal congestion. NECK: No stridor, no adenopathy, no meningismus, trachea is midline. LUNGS: Clear to auscultation bilaterally, no wheeze, no rhonchi, breath sounds equal. ABDOMEN: Soft, nontender, no peritonitis. EXTREMITIES: No cyanosis. The patient has significant swelling of the right hand and forearm. There is warmth and erythema to the right hand. There is some discomfort with movement of the right third finger. Cap refill is intact distally in all fingertips. There is a subtle abrasion to the dorsal portion of the right hand along the ulnar aspect. No drainage. NEUROLOGIC: Oriented x 3, no acute motor or sensory deficits, no focal weakness. SKIN: No jaundice, no diaphoresis. DIFFERENTIAL DIAGNOSIS: Tenosynovitis, osteomyelitis, cellulitis, failed outpatient management, among others. EMERGENCY DEPARTMENT PROCEDURES: MEDICAL DECISION MAKING: There is no leukocytosis. A mild anemia was seen, the anemia is baseline looking back at previous testing. There was a normal platelet count. No renal failure or significant electrolyte abnormality. No concerning liver enzyme elevation. Right hand CT shows cellulitis, no obvious osteomyelitis or abscess. On exam, the patient's right hand was swollen and erythematous. There was some pain to move the right third finger. No drainage. The patient has been on clindamycin. He is not improving. He did take a dose of oral clindamycin here, he was due for the dose. He was given a dose of IV daptomycin. Patient has cellulitis. He is failing outpatient management. He does have a previous injury to this arm and I suspect, this is inhibiting clearance of the infection. I do think IV antibiotics are indicated. I did speak with the patient and case management. The on-call hospitalist was consulted. Prior/Outside records/notes reviewed: None Imaging/x-ray results per my interpretation: Chronic Medical/Social conditions affecting care: History of crush injury to the right upper extremity. Care/Management discussed with: Case management, the on-call hospitalist Level of care consideration(s): After review of the information above and other included data: --I believe the patient requires escalation of care to admission DISPOSITION: Admission Past Med/Surg History Problem List Anemia (Acute) Failure of outpatient treatment (Acute) Cellulitis (Acute) Cellulitis of right hand Close exposure to COVID-19 virus Bilateral lower leg cellulitis (Acute) Tobacco use H/O intravenous drug use in remission (Acute) Medical History Congenital foot abnormality Surgical History H/O foot surgery Family History Other Diabetes Heart disease Social History Smoking Status: Unknown if ever smoked Tobacco Type: Cigarettes packs per day: 0.5; Cigarettes Per Day: 1/2 PPD, [place]; Second Hand Exposure: Yes; Do You Dip or Chew Tobacco: No; Hx Alcohol Use: No Hx Substance Use: No Preferred Language: Slovenian Communication Ability: Effective 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 Beliefs That Will Affect Care: None Current Living Situation: Spouse Current Living Situation Comment: Lives w/ spouse and children, x2 Feels Safe at Home: Yes Assistive Devices: None Allergies Allergies Allergy/AdvReac Type Severity Reaction Status Date / Time amoxicillin Allergy Severe Anaphylaxis Verified 05/06/24 21:18 Penicillins Allergy Severe Anaphylaxis Verified 05/06/24 21:18 Home Meds Home Medications Medication Instructions Recorded Confirmed amlodipine 5 mg tablet 5 mg PO DAILY 05/06/24 05/06/24 cephalexin 500 mg capsule 500 mg PO TID 05/06/24 05/06/24 lisinopril 5 mg tablet 5 mg PO DAILY 05/06/24 05/06/24 Results & Data (ED) Vital Signs Vital Signs - 24 hr 05/06/24 16:01 05/06/24 19:44 Temperature 36.5 C Temperature Source Temporal Artery Scan Pulse Rate 94 H Pulse Rate [Finger] 77 Pulse Rhythm [Finger] Regular Respiratory Rate 18 20 Respiratory Effort / Characteristics Non-Labored Spontaneous Non-Labored Respiratory Depth Normal Normal Respiratory Pattern Regular Blood Pressure 144/82 H Blood Pressure [Right Arm] 144/93 H Blood Pressure Mean 102 Blood Pressure Mean [Right Arm] 110 Pulse Oximetry 99 97 Oxygen Delivery Method Room Air Room Air Sepsis Recent Fever Within 48 Hours No Sepsis New/Unexplained Change in Mental Status N/A Sepsis Action Taken by Nursing No Action Required Home Medications Current Medication List: was personally reviewed by me Laboratory Data Attestation: I reviewed the patient's lab results. 05/06/24 16:15 05/06/24 16:15 Lab Results 05/06/24 Range/Units 16:15 WBC 7.20 (4.8-10.8) K/ul RBC 4.66 L (4.70-6.10) M/uL Hgb 12.5 L (14.0-18.0) g/dl Hct 37.9 L (42.0-52.0) % MCV 81.3 (80.0-100.0) fL MCH 26.8 (25.0-34.0) pg MCHC 33.0 (32.0-36.0) g/dL RDW Std Deviation 39.3 (36.4-46.3) fL RDW Coeff of Lovely 13.3 (11.5-14.5) % Plt Count 283 (130-400) K/uL MPV 9.3 L (9.4-12.4) fL Immature Gran % (Auto) 0.6 % Neut % (Auto) 65.9 % Lymph % (Auto) 18.2 % Hill % (Auto) 12.8 % Eos % (Auto) 1.9 % Baso % (Auto) 0.6 % Neut # (Auto) 4.75 (1.40-6.50) K/uL Lymph # (Auto) 1.31 (1.20-3.40) K/uL Hill # (Auto) 0.92 H (0.11-0.59) K/uL Eos # (Auto) 0.14 (0.00-0.50) K/uL Baso # (Auto) 0.04 (0.00-0.20) K/uL Immature Gran # (Auto) 0.04 (0.01-0.20) K/uL Sodium 138 (136-145) mmol/L Potassium 4.0 (3.5-5.1) mmol/L Chloride 104 (98-107) mmol/L Carbon Dioxide 27 (21-32) mmol/L Anion Gap 7 (3-11) BUN 17 (6-23) mg/dl Creatinine 0.86 (0.6-1.4) mg/dl Est Cr Clr Drug Dosing 155.0 ml/min Est GFR ( Amer) 128.4 ml/min Est GFR (Non-Af Amer) 110.8 ml/min BUN/Creatinine Ratio 19.8 (10-20) Glucose 102 H (70-99(Fasting)) mg/dl Calcium 8.9 (8.6-10.3) mg/dl Total Bilirubin 0.4 (0.2-1.0) mg/dl AST 22 (13-39) U/L ALT 23 (7-52) U/L Alkaline Phosphatase 81 (34-104) U/L Total Protein 7.8 (6.0-8.3) gm/dl Albumin 4.5 (3.4-5.0) gm/dl Globulin 3.3 (2.5-4.0) gm/dl Albumin/Globulin Ratio 1.4 (0.9-2) Administered Medications Discontinued Medications Daptomycin 550 mg/ Syringe 11 mls @ 5.5 mls/min IV NOW STA; Protocol Stop: 05/06/24 18:53 Last Admin: 05/06/24 19:45 Dose: 5.5 mls/min Documented By: NAKUL Ioversol (Optiray 320 100ml) 94 ml IV ONCE ONE Stop: 05/06/24 19:19 Last Admin: 05/06/24 19:18 Dose: 94 ml Documented By: LORI Imaging Data Radiologist's Impression: Hand CT 05/06/24 18:52 Exam(s): CT EXTREMITY RIGHT UPPER With Contrast IV Amt: 94 ml optiray 320 EXAM: CT Right Upper Extremity With Intravenous Contrast CLINICAL HISTORY: Reason for exam: poss tenosyn or osteo. TECHNIQUE: Axial computed tomography images of the right upper extremity with intravenous contrast. CTDI is 19.67 mGy and DLP is 456.09 mGy-cm. Automated exposure control was utilized for the study. A dose lowering technique was utilized adhering to the principles of ALARA. CONTRAST: Patient received 94 ml optiray 320 of IV contrast COMPARISON: No relevant prior studies available. FINDINGS: There is significant dorsal soft tissue swelling and subcutaneous fat stranding within the distal forearm, wrist, and hand. At the level of the fingers, soft tissue swelling is greatest surrounding the third finger. No organized fluid collections or soft tissue gas are observed. There are remote posttraumatic changes of the distal radius and ulna. There is no evidence of acute fracture or dislocation. There is a nonspecific intraosseous cyst within the third metacarpal head. No osseous erosive changes are observed. IMPRESSION: 1. Severe cellulitis of the dorsum of the forearm, wrist, and hand, with extension along the fingers, in particular the third finger. No soft tissue gas to suggest necrotizing infection. 2. Assessment of tenosynovitis is limited by CT. No large tenosynovial fluid collections are observed, but mild tenosynovitis is not excluded. 3. No CT evidence of osteomyelitis. Electronically signed by: Nagi Dickerson M.D. 05/06/24 20:06 PM Discharge Plan Visit Data Chief Complaint: Hand Injury/Pain Stated Complaint: RT HAND SWELLING ED Provider: Dontae Carr Discharge Problem: Cellulitis, Failure of outpatient treatment, Anemia Patient Disposition: Admitted As Inpatient Condition: Fair Forms Stand Alone Forms: [facility] Prescriptions Prescriptions: No Action amlodipine 5 mg tablet 5 mg PO DAILY cephalexin 500 mg capsule 500 mg PO TID Rx Instructions: STARTED 05/03/24 FOR 7 DAYS lisinopril 5 mg tablet 5 mg PO DAILY Referrals Referrals: PCP,NO [Primary Care Provider] - Discharge Problem: Cellulitis Qualifiers: Site of cellulitis: extremity Site of cellulitis of extremity: upper extremity Laterality: right Qualified Code(s): L03.113 - Cellulitis of right upper limb Anemia Qualifiers: Anemia type: unspecified type Qualified Code(s): D64.9 - Anemia, unspecified
[2024-05-06] MEDS: OPTIRAY 320 100ml IV ONE (19:18)
[2024-05-06] MEDS: DAPTOmycin 550 MG in SYRINGE 0 ML IV STA (19:45)
--- NOTE | 2024-05-06 20:08 | CT Scan Report ---
Exam(s): CT EXTREMITY RIGHT UPPER With Contrast IV Amt: 94 ml optiray 320 EXAM: CT Right Upper Extremity With Intravenous Contrast CLINICAL HISTORY: Reason for exam: poss tenosyn or osteo. TECHNIQUE: Axial computed tomography images of the right upper extremity with intravenous contrast. CTDI is 19.67 mGy and DLP is 456.09 mGy-cm. Automated exposure control was utilized for the study. A dose lowering technique was utilized adhering to the principles of ALARA. CONTRAST: Patient received 94 ml optiray 320 of IV contrast COMPARISON: No relevant prior studies available. FINDINGS: There is significant dorsal soft tissue swelling and subcutaneous fat stranding within the distal forearm, wrist, and hand. At the level of the fingers, soft tissue swelling is greatest surrounding the third finger. No organized fluid collections or soft tissue gas are observed. There are remote posttraumatic changes of the distal radius and ulna. There is no evidence of acute fracture or dislocation. There is a nonspecific intraosseous cyst within the third metacarpal head. No osseous erosive changes are observed. IMPRESSION: 1. Severe cellulitis of the dorsum of the forearm, wrist, and hand, with extension along the fingers, in particular the third finger. No soft tissue gas to suggest necrotizing infection. 2. Assessment of tenosynovitis is limited by CT. No large tenosynovial fluid collections are observed, but mild tenosynovitis is not excluded. 3. No CT evidence of osteomyelitis. Electronically signed by: Nagi Dickerson M.D. 05/06/24 20:06 PM
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
[2024-05-07] MEDS ORDERED: POLYETHYLENE (MIRALAX) 17 GM PACK PO PRN (00:18)
[2024-05-07] MEDS: SODIUM CHLORIDE 0.9% 1,000 ML IV SCH (00:18)
[2024-05-07] MEDS ORDERED: MoRPHine SULFATE 2 MG/ML CARP IV PRN (00:18)
[2024-05-07 07:52] LABS: Basophils # (auto) 0.04 K/uL (0.00-0.20); Basophils % (auto) 0.8 %; Eosinophils # (auto) 0.14 K/uL (0.00-0.50); Eosinophils % (auto) 2.8 %; Hematocrit (blood only) 35.7 % (42.0-52.0); Hemoglobin 11.8 g/dl (14.0-18.0); Immature Granulocytes # (auto) 0.03 K/uL (0.01-0.20); Immature Granulocytes % (auto) 0.6 %; Lymphocytes # (auto) 1.23 K/uL (1.20-3.40); Lymphocytes % (auto) 24.6 %; Mean Corpuscular Hgb Conc 33.1 g/dL (32.0-36.0); Mean Corpuscular Volume 81.7 fL (80.0-100.0); Mean Platelet Volume 9.8 fL (9.4-12.4); Monocytes # (auto) 0.79 K/uL (0.11-0.59); Monocytes % (auto) 15.8 %; Neutrophils # (auto) 2.77 K/uL (1.40-6.50); Neutrophils % (auto) 55.4 %; Platelet Count 225 K/uL (130-400); RDW Coefficient of Variation 13.4 % (11.5-14.5); RDW Standard Deviation 39.8 fL (36.4-46.3); Red Blood Count 4.37 M/uL (4.70-6.10)
[2024-05-07 08:05] LABS: BUN Creatinine Ratio 23.1 (10-20); Calcium 8.4 mg/dl (8.6-10.3); Creatinine Clr Calc Pharmacy 204.9 ml/min; Est GFR (African American) 144.1 ml/min; Est GFR (Non-African American) 124.3 ml/min; Magnesium 2.1 mg/dl (1.7-2.4); Potassium 4.5 mmol/L (3.5-5.1)
[2024-05-07] MEDS: lisinopril 5 MG TAB PO SCH (08:58)
[2024-05-07] MEDS: amLODIPine BESYLATE 5 MG TAB PO SCH (08:58)
--- NOTE | 2024-05-07 10:45 | Orthopedic Consultation ---
Date of Consultation May 07, 2024 Assessment & Plan (1) Cellulitis of right hand: Patient is currently n.p.o. Infectious disease consultation is pending He is currently receiving IV daptomycin. He states that his pain is adequately controlled. I will discuss the patient's condition with Dr. Gunn.. He will most likely see him later today. History of Present Illness Reason for Consultation: Right hand cellulitis Requesting Physician: Dr. Brandt West Attending Physician: Elizabeth Pisano MD History of Present Illness This 38-year-old male seen in consultation for right hand cellulitis that has been ongoing for the past week. Patient states that he works as a technical maintenance specialist at a detention and is also been remodeling his bathroom. He states that he does have some superficial abrasions to the dorsal surface of his hand. He states that most of his pain is in his third finger with associated swelling and redness. He states that it does feel warm and he has pain with flexion. He states there is also some redness at the base of his fourth finger. He denies any limitations with range of motion at his wrist. He states that he has previous injuries to the wrist and has documented arthritis. There are notable scars on his forearm from a previous crush injury. He denies any numbness or tingling in his fingers. He has no complaint of chest pain, shortness of breath, fever, chills, sweats, nausea, vomiting, diarrhea or difficulty voiding. Allergies Allergy/AdvReac Type Severity Reaction Status Date / Time amoxicillin Allergy Severe Anaphylaxis Verified 05/06/24 21:18 Penicillins Allergy Severe Anaphylaxis Verified 05/06/24 21:18 Home Medications Medication Instructions Recorded Confirmed Type amlodipine 5 mg tablet 5 mg PO DAILY 05/06/24 05/06/24 History cephalexin 500 mg capsule 500 mg PO TID 05/06/24 05/06/24 History lisinopril 5 mg tablet 5 mg PO DAILY 05/06/24 05/06/24 History Patient History Medical History Congenital foot abnormality Surgical History H/O foot surgery Family History Other Diabetes Heart disease Social History Smoking Status: Never smoker Tobacco Type: Smokeless Tobacco (Dip or Chew) packs per day: 0.5; Second Hand Exposure: Yes; Do You Dip or Chew Tobacco: Yes; Hx Alcohol Use: No Hx Substance Use: No Preferred Language: Moldovan Communication Ability: Effective Certified Diabetes Educator Required: No Beliefs That Will Affect Care: None Current Living Situation: Spouse Current Living Situation Comment: Lives w/ spouse and children, x2 Other Information That Helps Us Care for You: No Feels Safe at Home: Yes Safety Concerns: Feels Safe At This Time Assistive Devices: CPAP Review of Systems Review of Systems: All systems reviewed & are unremarkable except as noted in Subjective Physical Exam Physical Exam: Right hand: There are 3 superficial scabbed over abrasions to the dorsal surface of the hand over the fourth and fifth metacarpal near the wrist flexion crease. Patient does have visible edema and erythema of the entire third finger with most pronounced pain at the PIP joint when he flexes. There is also some note of erythema at the base of his fourth finger. Both fingers are warm to touch when compared to remaining digits. Patient is able to actively flex and extend at the wrist without significant discomfort. He is able to ulnarly and radially deviate, pronate and supinate. He is able to detect light sensation to touch over the pads of all digits. His peripheral pulses are 2+. His capillary fill is less than 2 seconds. He does have significant edema extending from the third and fourth fingers to the base of the wrist both on the dorsal and palmar surface. There are no open skin areas. No drainage. No palpable fluctuance. There is 1+ pitting edema with palpation. Results & Data Vital Signs (Past 12 Hours) Vital Signs Temp Pulse Pulse Resp BP Pulse Ox O2 Del Method 05/07/24 07:58 36.6 C 70 18 154/94 H 100 Room Air 05/06/24 23:53 36.7 C 75 18 159/88 H 99 Room Air 05/06/24 23:53 36.7 C 75 18 159/88 H 99 Room Air 05/06/24 23:40 Room Air Diagnostic Findings Laboratory Results WBC 5.00 K/ul (4.8-10.8) 05/07/24 06:45 RBC 4.37 M/uL (4.70-6.10) L 05/07/24 06:45 Hgb 11.8 g/dl (14.0-18.0) L 05/07/24 06:45 Hct 35.7 % (42.0-52.0) L 05/07/24 06:45 MCV 81.7 fL (80.0-100.0) 05/07/24 06:45 MCH 27.0 pg (25.0-34.0) 05/07/24 06:45 MCHC 33.1 g/dL (32.0-36.0) 05/07/24 06:45 RDW Std Deviation 39.8 fL (36.4-46.3) 05/07/24 06:45 RDW Coeff of Lovely 13.4 % (11.5-14.5) 05/07/24 06:45 Plt Count 225 K/uL (130-400) 05/07/24 06:45 MPV 9.8 fL (9.4-12.4) 05/07/24 06:45 Immature Gran % (Auto) 0.6 % 05/07/24 06:45 Neut % (Auto) 55.4 % 05/07/24 06:45 Lymph % (Auto) 24.6 % 05/07/24 06:45 [place] % (Auto) 15.8 % 05/07/24 06:45 Eos % (Auto) 2.8 % 05/07/24 06:45 Baso % (Auto) 0.8 % 05/07/24 06:45 Neut # (Auto) 2.77 K/uL (1.40-6.50) 05/07/24 06:45 Lymph # (Auto) 1.23 K/uL (1.20-3.40) 05/07/24 06:45 [place] # (Auto) 0.79 K/uL (0.11-0.59) H 05/07/24 06:45 Eos # (Auto) 0.14 K/uL (0.00-0.50) 05/07/24 06:45 Baso # (Auto) 0.04 K/uL (0.00-0.20) 05/07/24 06:45 Immature Gran # (Auto) 0.03 K/uL (0.01-0.20) 05/07/24 06:45 Sodium 139 mmol/L (136-145) 05/07/24 06:45 Potassium 4.5 mmol/L (3.5-5.1) 05/07/24 06:45 Chloride 106 mmol/L (98-107) 05/07/24 06:45 Carbon Dioxide 28 mmol/L (21-32) 05/07/24 06:45 Anion Gap 5 (3-11) 05/07/24 06:45 BUN 15 mg/dl (6-23) 05/07/24 06:45 Creatinine 0.65 mg/dl (0.6-1.4) 05/07/24 06:45 Est Cr Clr Drug Dosing 204.9 ml/min 05/07/24 06:45 Est GFR ( Amer) 144.1 ml/min 05/07/24 06:45 Est GFR (Non-Af Amer) 124.3 ml/min 05/07/24 06:45 BUN/Creatinine Ratio 23.1 (10-20) H 05/07/24 06:45 Glucose 111 mg/dl (70-99(Fasting)) H 05/07/24 06:45 Calcium 8.4 mg/dl (8.6-10.3) L 05/07/24 06:45 Magnesium 2.1 mg/dl (1.7-2.4) 05/07/24 06:45 Total Bilirubin 0.4 mg/dl (0.2-1.0) 05/06/24 16:15 AST 22 U/L (13-39) 05/06/24 16:15 ALT 23 U/L (7-52) 05/06/24 16:15 Alkaline Phosphatase 81 U/L (34-104) 05/06/24 16:15 Total Protein 7.8 gm/dl (6.0-8.3) 05/06/24 16:15 Albumin 4.5 gm/dl (3.4-5.0) 05/06/24 16:15 Globulin 3.3 gm/dl (2.5-4.0) 05/06/24 16:15 Albumin/Globulin Ratio 1.4 (0.9-2) 05/06/24 16:[address] 05/06/24 18:52 Exam(s): CT EXTREMITY RIGHT UPPER With Contrast IV Amt: 94 ml optiray 320 EXAM: CT Right Upper Extremity With Intravenous Contrast CLINICAL HISTORY: Reason for exam: poss tenosyn or osteo. TECHNIQUE: Axial computed tomography images of the right upper extremity with intravenous contrast. CTDI is 19.67 mGy and DLP is 456.09 mGy-cm. Automated exposure control was utilized for the study. A dose lowering technique was utilized adhering to the principles of ALARA. CONTRAST: Patient received 94 ml optiray 320 of IV contrast COMPARISON: No relevant prior studies available. FINDINGS: There is significant dorsal soft tissue swelling and subcutaneous fat stranding within the distal forearm, wrist, and hand. At the level of the fingers, soft tissue swelling is greatest surrounding the third finger. No organized fluid collections or soft tissue gas are observed. There are remote posttraumatic changes of the distal radius and ulna. There is no evidence of acute fracture or dislocation. There is a nonspecific intraosseous cyst within the third metacarpal head. No osseous erosive changes are observed. IMPRESSION: 1. Severe cellulitis of the dorsum of the forearm, wrist, and hand, with extension along the fingers, in particular the third finger. No soft tissue gas to suggest necrotizing infection. 2. Assessment of tenosynovitis is limited by CT. No large tenosynovial fluid collections are observed, but mild tenosynovitis is not excluded. 3. No CT evidence of osteomyelitis. Electronically signed by: Nagi Dickerson M.D. 05/06/24 20:06 PM
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
--- NOTE | 2024-05-07 11:52 | XRay Report ---
XR hand RT min 3V routine CLINICAL HISTORY: cellulitis COMPARISON: Right hand CT May 06, 2024. FINDINGS: Alignment of the right hand is anatomic. There are no fractures. No radiopaque foreign bod ies are noted. No areas of bony erosion are noted. There is moderate radiocarpal joint space narrowin g. Associated osteophytosis is present. Old, healed distal right radial and ulnar fractures are prese nt. Extensive distal right forearm, wrist and hand soft tissue swelling is present. There is no radio graphic evidence for soft tissue gas. IMPRESSION: 1. No fractures within the right hand. No evidence for acute osteomyelitis. 2. Extensive distal right forearm, wrist and hand soft tissue swelling. This suggests cellulitis. ACT 112: Negative or not required by law. Electronically signed by: Adonis Nuñez M.D. 05/07/2024 11:50 AM
--- NOTE | 2024-05-07 12:08 | Infectious Disease Consult ---
Date of Service May 07, 2024 Telehealth Information I performed this visit using a real-time telehealth connection between my location and the patients location ([facility]). After connecting through interactive tele-video, patient was identified by name and date of and/or wristband check.Patient (or authorized healthcare personal financial representative) was informed that this was a telemedicine visit and it was being conducted confidentially over secure lines. My office door was closed and no o ne else was present in the room with me.Patient (or authorized healthcare personal financial representative) provided consent to proceed with the visit, expressed an understanding of privacy and security of the telemedicine visit, and gave permission to have a hospital personal financial representative in the room in order to assist with the visit and to conduct portions of the visit, as needed. I informed the patient (or authorized healthcare personal financial representative) that I reviewed their record and presented the opportunity for them to ask any questions regarding the visit today. The patient agreed to participate. Assessment & Plan (1) Cellulitis of right hand: Plan: Consider switching to vancomycin if no contra-indications (2) H/O intravenous drug use in remission: Plan: Drug screen Plan Patient who presented with right hand cellulitis and is currently on daptomycin .Imaging did not reveal any osteomyelitis for drainable fluid .Would recommend switching to vancomycin if no contra-indications monitoring renal function and vancomycin trough .When there has been significant improvement consider switching to keflex if he has tolerated cephalosporins before and if not can use doxycycline to complete a total of 14 days .Thank you for allowing us to participate in the care of this patient ID will sign off History of Present Illness History of Present Illness 38 y/o M PMHx morbid obesity, congenital anomalies of foot, allergic rhinitis, hypertension presented with right hand cellulitis. Patient states he was remodeling his bathroom and last Friday he noticed swelling of the right hand along with some scratches on the lateral aspect right hand. He denied any fevers but the swelling got progressively worse and he began to experience pain on moving his fingers. He was prescribed Keflex but his symptoms got worse so came to the ER. Allergies Allergy/AdvReac Type Severity Reaction Status Date / Time amoxicillin Allergy Severe Anaphylaxis Verified 05/06/24 21:18 Penicillins Allergy Severe Anaphylaxis Verified 05/06/24 21:18 Home Medications Medication Instructions Recorded Confirmed Type amlodipine 5 mg tablet 5 mg PO DAILY 05/06/24 05/06/24 History cephalexin 500 mg capsule 500 mg PO TID 05/06/24 05/06/24 History lisinopril 5 mg tablet 5 mg PO DAILY 05/06/24 05/06/24 History Patient History Medical History Congenital foot abnormality Surgical History H/O foot surgery Family History Other Diabetes Heart disease Social History Smoking Status: Never smoker Tobacco Type: Smokeless Tobacco (Dip or Chew) packs per day: 0.5; Second Hand Exposure: Yes; Do You Dip or Chew Tobacco: Yes; Hx Alcohol Use: No Hx Substance Use: No Preferred Language: Zambian Communication Ability: Effective Rural Electrification Engineer Required: No Beliefs That Will Affect Care: None Current Living Situation: Spouse Current Living Situation Comment: Lives w/ spouse and children, x2 Other Information That Helps Us Care for You: No Feels Safe at Home: Yes Safety Concerns: Feels Safe At This Time Assistive Devices: CPAP Results & Data Vital Signs (Past 12 Hours) Vital Signs Temp Pulse Resp BP Pulse Ox O2 Del Method 05/07/24 07:58 36.6 C 70 18 154/94 H 100 Room Air Laboratory Results No leukocytosis Diagnostic Findings FINDINGS: Alignment of the right hand is anatomic. There are no fractures. No radiopaque foreign bodies are noted. No areas of bony erosion are noted. There is moderate radiocarpal joint space narrowing. Associated osteophytosis is present. Old, healed distal right radial and ulnar fractures are present. Extensive distal right forearm, wrist and hand soft tissue swelling is present. There is no radiographic evidence for soft tissue gas. IMPRESSION: 1. No fractures within the right hand. No evidence for acute osteomyelitis. 2. Extensive distal right forearm, wrist and hand soft tissue swelling. This suggests cellulitis. IMPRESSION: 1. Severe cellulitis of the dorsum of the forearm, wrist, and hand, with extension along the fingers, in particular the third finger. No soft tissue gas to suggest necrotizing infection. 2. Assessment of tenosynovitis is limited by CT. No large tenosynovial fluid collections are observed, but mild tenosynovitis is not excluded. 3. No CT evidence of osteomyelitis.
[2024-05-07] MEDS: DAPTOmycin 550 MG in SYRINGE 0 ML IV SCH (17:09)
--- NOTE | 2024-05-07 19:25 | XRay Report ---
RIGHT WRIST 4 VIEWS CLINICAL HISTORY: Cellulitis. FINDINGS: 4 views of the right wrist are obtained. No prior studies are available for comparison at t he time of dictation. The skeletal structures are well mineralized. No acute fracture is seen. There is chronic deformity of the distal radius, as well as a chronic avulsion injury of the ulnar styloid. Degenerative narrowing is seen at the radiocarpal articulation. No erosive change is seen. Diffuse s oft tissue edema is present throughout the wrist and hand. No soft tissue gas or radiodense foreign b slim is identified. IMPRESSION: 1. Diffuse soft tissue swelling with no acute bony abnormality identified. 2. 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 Electronically signed by: Dontae Taylor M.D. 05/07/2024 7:24 PM
[2024-05-07] MEDS: ACETAMINOPHEN 325 MG TAB PO PRN (20:10)
[2024-05-08 06:28] LABS: BUN Creatinine Ratio 21.9 (10-20); Calcium 8.6 mg/dl (8.6-10.3); Creatinine Clr Calc Pharmacy 208.1 ml/min; Est GFR (Non-African American) 125.1 ml/min; Potassium 4.5 mmol/L (3.5-5.1)
[2024-05-08 07:15] LABS: Hemoglobin 12.4 g/dl (14.0-18.0); Mean Corpuscular Hgb Conc 32.6 g/dL (32.0-36.0); Mean Corpuscular Volume 82.6 fL (80.0-100.0); Mean Platelet Volume 9.1 fL (9.4-12.4); Platelet Count 249 K/uL (130-400); RDW Coefficient of Variation 13.2 % (11.5-14.5); RDW Standard Deviation 39.6 fL (36.4-46.3); White Blood Count 5.51 K/ul (4.8-10.8)
--- NOTE | 2024-05-08 09:29 | Orthopedic Progress Note ---
Date of Service May 08, 2024 Assessment & Plan (1) Cellulitis of right hand: Overall he is improving. The CAT scan and the exam show no evidence of abscess. I will see any surgical indications at this time. Will continue to treat him with IV antibiotics. Camille Arzate was seen and examined at bedside this morning. Overall he is doing well. His hand seems to be getting better. The swelling and the redness have decreased. He has no new complaints.. Review of Systems All systems reviewed & are unremarkable except as noted in HPI & below. Physical Exam On physical examination of his right hand, he is able to make about 70% of a full fist. The redness is decreased. He still some swelling.. Results & Data Results & Data Laboratory Results . Diagnostic Findings . PG Care Time/CCT Total # of Minutes Spent Total Time Spent with Patient: Total time spent is greater than 50% in coordination of care (as documented) at patient's floor/unit and/or counseling patient: Coding Level of Care Code 74394 SUB INP/OBS CARE 2/35MIN Diagnoses Cellulitis of right hand L03.113
--- NOTE | 2024-05-08 10:48 | Hospitalist Progress Note ---
Date of Service May 08, 2024 Assessment & Plan (1) Cellulitis of right hand: Plan: 38-year-old male with past medical significant for morbid obesity, congenital anomalies of foot, allergic rhinitis, hypertension presents with right hand cellulitis. Patient reported he was remodeling his bathroom and next day last Friday noticed swelling of the right hand. Had some scratches on the lateral aspect right hand. Swelling got progressively worse and having pain on moving his fingers. Has been on Keflex since Friday but symptoms are getting worse so came to the ER. Cellulitis of right hand Failed outpatient treatment with Keflex Hand CT: 1. Severe cellulitis of the dorsum of the forearm, wrist, and hand, with extension along the fingers, in particular the third finger. No soft tissue gas to suggest necrotizing infection. 2. Assessment of tenosynovitis is limited by CT. No large tenosynovial fluid collections are observed, but mild tenosynovitis is not excluded. 3. No CT evidence of osteomyelitis. Currently on IV daptomycin Ortho eval and recs noted Hypertension Continue amlodipine and lisinopril Will monitor Obesity Counseled regarding need for weight loss/lifestyle modification DVT prophylaxis SCDs for now Full code I spent a total of 35 minutes coordinating, documenting and providing care for this patient excluding time spent in performance of separately billed services Admission and Anticipated Discharge Date Admission Date: May 06, 2024 Subjective Patient seen and examined Reports right hand pain and swelling are improving Denied any other complaints Physical Exam Constitutional: + well hydrated and + obese; no acute di stress Eyes: PERRL, conjunctivae normal, anicteric sclerae ENMT: external ear and nose normal, oropharynx normal Respiratory: normal respiratory effort, lungs clear to auscultation Cardiovascular: Rate/Rhythm: regular rate and regular rhythm Gastrointestinal (Abdomen): normal bowel sounds, soft, nontender, no hepatosplenomegaly Musculoskeletal: Right hand still has swelling Erythema is improving Ability to make a fist is improving Neurologic: PERRL, EOMI, accommodation nl, no face palsy, no dysarthria Psychiatric: A+Ox3, euthymic affect Results & Data Results & Data Vital Signs (Past 12 Hours) Vital Signs Temp Pulse Resp BP Pulse Ox O2 Del Method 05/08/24 07:54 36.5 C 61 18 137/85 100 Room Air Laboratory Results Abnormal lab results 08/31/24 08/31/24 Range/Units 05:54 06:56 RBC 4.60 L (4.70-6.10) M/uL Hgb 12.4 L (14.0-18.0) g/dl Hct 38.0 L (42.0-52.0) % MPV 9.1 L (9.4-12.4) fL Chloride 108 H (98-107) mmol/L BUN/Creatinine Ratio 21.9 H (10-20) Glucose 116 H (70-99(Fasting)) mg/dl
[2024-05-08 14:53] VITALS: RESP 16
[2024-05-09 06:30] LABS: Hematocrit (blood only) 36.7 % (42.0-52.0); Hemoglobin 12.3 g/dl (14.0-18.0); Mean Corpuscular Hemoglobin 27.3 pg (25.0-34.0); Mean Corpuscular Hgb Conc 33.5 g/dL (32.0-36.0); Mean Corpuscular Volume 81.4 fL (80.0-100.0); Mean Platelet Volume 9.5 fL (9.4-12.4); Platelet Count 251 K/uL (130-400); RDW Coefficient of Variation 13.1 % (11.5-14.5); RDW Standard Deviation 38.8 fL (36.4-46.3); Red Blood Count 4.51 M/uL (4.70-6.10); White Blood Count 6.12 K/ul (4.8-10.8)
[2024-05-09 06:39] LABS: BUN Creatinine Ratio 21.4 (10-20); Calcium 8.8 mg/dl (8.6-10.3); Creatinine Clr Calc Pharmacy 190.2 ml/min; Est GFR (African American) 139.7 ml/min; Est GFR (Non-African American) 120.6 ml/min; Potassium 4.1 mmol/L (3.5-5.1)
[2024-05-09 07:20] VITALS: BP 129/81; PULSE 63; TEMP 97.9; O2SAT 100
--- NOTE | 2024-05-09 11:16 | Discharge Summary ---
Date of Service May 09, 2024 Admission HPI Per Admitting Provider 38-year-old male with past medical history significant for morbid obesity, congenital anomalies of foot, allergic rhinitis, hypertension presents with right hand cellulitis. Patient states he was remodeling his bathroom and next day last Friday noticed swelling of the right hand. There is some scratches on the lateral aspect right hand. Denies any fevers. But the swelling got progressively worse and having pain on moving his fingers. He was prescribed Keflex last Friday but symptoms are getting worse so came to the ER. No other complaints. Hemodynamics are okay. No headache. No runny nose or sore throat. No cough. No chest pain. No shortness of breath. No nausea, no abdominal pain. Normal bowel and bladder movements. Resting comfortably. Past medical history. As mentioned above Past surgical history. Revision of the foot bones bilaterally. Had accident with injuries to right hand and status post several surgeries. Nasal surgery. Social history. Quit smoking about 2 years ago. Smoked 1 pack a day for 10 years. No alcohol use currently. States she used to do IV drugs in the past and the last was about 6 years ago. Family history. Father side has heart disease. Mother side has diabetes. Admission Exam Per Admitting Provider General- Not in distress. Head- atraumatic Eyes- PERRL. ENT- oropharynx clear Neck- supple, no JVD. Lungs- clear to auscultation no wheezing or crackles. Heart- regular rhythm; no murmur, no gallop. Abdomen- normal bowel sounds, soft, nontender, no distension Extremities- no pretibial edema, no erythema seen Neuro- alert, oriented PERRL, no facial palsy; no dysarthria; moves extremities. Skin- warm & dry Principal Diagnosis Right hand cellulitis Failed outpatient treatment Discharge Exam Constitutional + well hydrated and + obese; no acute distress Eyes PERRL, conjunctivae normal, anicteric sclerae ENMT external ear and nose normal, oropharynx normal Respiratory normal respiratory effort, lungs clear to auscultation Cardiovascular Rate/Rhythm: regular rate and regular rhythm Gastrointestinal (Abdomen) normal bowel sounds, soft, nontender, no hepatosplenomegaly Musculoskeletal Right hand swelling and erythema much improved Neurologic PERRL, EOMI, accommodation nl, no face palsy, no dysarthria Psychiatric A+Ox3, euthymic affect Discharge Data Allergies Allergy/AdvReac Type Severity Reaction Status Date / Time amoxicillin Allergy Severe Anaphylaxis Verified 05/06/24 21:18 Penicillins Allergy Severe Anaphylaxis Verified 05/06/24 21:18 Consultations 05/06/24 20:29 ED Decision to Admit Stat 05/07/24 08:00 Consult Orthopedic Surgery Routine 05/07/24 09:00 Consult Infectious Diseases Routine Ordered Studies 05/06/24 18:52 CT hand RT w con Stat Hospital Course (1) Cellulitis of right hand: 38-year-old male with past medical significant for morbid obesity, congenital anomalies of foot, allergic rhinitis, hypertension presents with right hand cellulitis. Patient reported he was remodeling his bathroom and next day last Friday noticed swelling of the right hand. Had some scratches on the lateral aspect right hand. Swelling got progressively worse and having pain on moving his fingers. Has been on Keflex since Friday but symptoms are getting worse so came to the ER. Cellulitis of right hand Failed outpatient treatment with Keflex Hand CT: 1. Severe cellulitis of the dorsum of the forearm, wrist, and hand, with extension along the fingers, in particular the third finger. No soft tissue gas to suggest necrotizing infection. 2. Assessment of tenosynovitis is limited by CT. No large tenosynovial fluid collections are observed, but mild tenosynovitis is not excluded. 3. No CT evidence of osteomyelitis. Was managed with IV daptomycin inpatient With clinical improvement, antibiotics was changed to doxycycline to complete total of 14 days of antibiotic therapy Hypertension Continue amlodipine and lisinopril Obesity Counseled regarding need for weight loss/lifestyle modification Patient reports he already has appt with his PCP on Friday Total Time Total Time Spent Total Time Spent (In Minutes): 35 Total Time Includes: Examination of the Patient, Discharge Planning and Medication Reconciliation Discharge Plan Discharge Items Patient Disposition: Home - Self-Care Reason For Visit: RIGHT HAND CELLULITIS Discharge Diagnosis: Right hand cellulitis Condition on Discharge: Fair Activity: Resume your previous activity Non-emergency contact: Primary Care Provider Call non-emergency contact if: you have any medication questions and your symptoms worsen Follow-up/Referrals: PCP,NO [Primary Care Provider] - Diet: Heart Healthy and Low Sodium (2gm) Addtl Attending Provider Instructions: Mr Crowe. You were managed for right hand cellulitis that failed outpatient therapy. You are being discharged on tablet doxycycline to complete treatment. Please ensure you follow up with your Primary Doctor on friday before you return to work. It was a pleasure taking care of you Pending Studies at Discharge: No Stand-Alone Forms: My [facility], Work/School Release, Smoking Cessation Medications and DC Order Prescriptions: New doxycycline hyclate 100 mg tablet 100 mg PO BID 10 Days Qty: 20 0RF Continued amlodipine 5 mg tablet 5 mg PO DAILY lisinopril 5 mg tablet 5 mg PO DAILY Discontinued cephalexin 500 mg capsule 500 mg PO TID Rx Instructions: STARTED 05/03/24 FOR 7 DAYS Discharge Orders: Discharge Order (Routine); Ordered 05/09/24 Ordered By: Elizabeth Sheikh/Other Patient Handouts: Cellulitis Dc Admission Data Admit Date/Time: 05/06/24 22:23 Attending Provider: Elizabeth Pisano I. Admit Provider: Oj Martines Primary Care Provider: PCP,NO Other Providers: Oj Martines; Fredo Tse; Tony Peacock; Emilie Steve; Jed Carrera I.; Bk Vogt II; Judy Flores; Matthew Ness; Derick Doyle; Nehal Loomis Other Interventions: Discharge Summary Assessment (RN) Last Done: 05/09/24 13:31
== END 2024-05-09 14:05 | disposition home or self-care (01) | DRG 603 ==
LOC: ED 15:57 → 3E 22:23